=== PATIENT | male | born 1975 | race Caucasian/White ===

== ENCOUNTER 2016-11-29 19:14 | Emergency (ER) | payer MEDICAID ==
[~2016-11-29] VITALS: Ht 170.2 cm; Wt 70.0 kg
[2016-11-29 19:32] VITALS: Ht 170.2 cm; Wt 70.0 kg
[2016-11-29] MEDS ORDERED: HC30CR25 TOP (21:06)
[2016-11-29] MEDS ORDERED: PRED20TA PO (21:06)
[2016-11-29] MEDS ORDERED: TRIA15CR55 TOP (21:06)
--- NOTE | 2016-11-29 21:15 | ERD ---
ER Documentation Chief Complaint Date/Time DATE: 11/29/16 TIME: 21:13 Chief Complaint general rash x 1 month, getting worse. Denies contact w/unk substance HPI 41-year-old male with past medical history of lichen planus presenting to the emergency department with complaints of rash on bilateral upper and lower extremities as well as on the trunk worsening over the past month. He states he has had this rash intermittently for the past 10 years. He has seen a truck rental manager and the rash resolved with steroid injection and topical steroids. He denies fevers, chills, or other symptoms at this time. Symptoms are mild in severity. ROS All systems reviewed and are negative except as per history of present illness. Medications Home Meds Active Scripts Hydrocortisone* Topical (Hydrocortisone* Topical) 2.5%-28.3 Gm Cream..g., 1 APPLIC TOP BID for 7 Days, #1 TUB Prov:ROLDAN ARRIETA PA-C 11/29/16 Prednisone* (Prednisone*) 20 Mg Tab, 40 MG PO DAILY for 5 Days, #10 TAB Prov:ROLDAN ARRIETA PA-C 11/29/16 Discontinued Scripts Triamcinolone Acetonide (Triamcinolone Acetonide) 0.1% - 15 Gm Cream.gm., 1 APPLIC TOP BID, #1 TUB Prov:ROLDAN ARRIETA PA-C 11/29/16 Allergies Allergies: Coded Allergies: No Known Allergy (Unverified , 11/29/16) PMhx/Soc Medical and Surgical Hx: pt denies Medical Hx, pt denies Surgical Hx Hx Alcohol Use: No Hx Substance Use: No Hx Tobacco Use: No Smoking Status: Never smoker Physical Exam Vitals Vital Signs Date Time Temp Pulse Resp B/P Pulse Ox O2 Delivery O2 Flow Rate FiO2 11/29/16 19:32 98.6 70 18 148/86 100 Physical Exam Const: Nontoxic, well-appearing male in no acute distress. Head: Atraumatic Eyes: Normal Conjunctiva ENT: Normal External Ears, Nose and Mouth. Skin: Macular papular, flaking rash with areas of confluency noted on the bilateral upper and lower extremities as well as anterior trunk. No significant surrounding erythema or warmth or other signs of cellulitis. Ext: No cyanosis, or edema Neur: Awake and alert Psych: Normal Mood and Affect Procedures/MDM 41-year-old male presented to the emergency department with complaints of rash. History and physical examination is consistent with lichen planus. The patient does state that his symptoms are very similar to the rash he has had intermittently for the past 10 years which has resolved with steroids. He was stable for outpatient management with a prescription for topical hydrocortisone and prednisone. He was advised to follow-up with his primary care physician and dermatology. Strict ER return precautions were discussed. Low suspicion for cellulitis or other life-threatening illness at time of discharge. Departure Diagnosis: Primary Impression: Rash and other nonspecific skin eruption Condition: Fair Patient Instructions: Self-Care for Skin Rashes Ref[facility] Usted se camargo hecho un examen mdico de control que le indica que no est en monika condicin que requiera tratamiento urgente en el Departamento de Emergencia. Un estudio ms profundo y el tratamiento de borges condicin pueden esperar sin ningn riesgo hasta que usted sea atendida/o en el consultorio de borges mdico o monika cl tasha. Es responsabilidad suya arreglar monika michelle para el seguimiento del giovanny. MANEJO DE CONDICIONES NO URGENTES EN EL FUTURO 1) Si usted tiene un mdico de atencin primaria: Usted debera llamar a borges mdico de atencin primaria antes de venir al departamento de emergencia. Despus de las horas de consultorio, borges doctor o borges asociado/a est disponible por telfono. El mdico o enfermero de rolf en el servicio telefnico puede asesorarle por gerald medio para atender el problema, o giovanny contrario se puede programar monika michelle. 2) Si usted no tiene un mdico de atencin primaria: Llame al mdico o clnica de referencia que aparece abajo charito las horas de consultorio para hacer monika michelle para que le vean. CLINICAS: [facility] [phone] [facility] [phone] [facility] [phone] [facility] [phone] [facility] [phone] [facility]. [phone] [address] Additional Instructions: No mas mejor en 2-3 kohler, regresar. Mas peor en 24 horas, regresear rapidamente. Ir a doctor primario in 5-7 kohler. Usar instrucciones cuando benedicto medicamento. ROLDAN ARRIETA PA-C Nov 29, 2016 21:15
== END 2016-11-29 21:27 | disposition home or self-care (01) ==
LOC: FTE 19:14
DX: R21 Rash and other nonspecific skin eruption (principal)
CPT/HCPCS: 99283

== ENCOUNTER 2016-12-14 19:04 | Emergency (ER) | payer MEDICAID ==
[~2016-12-14] VITALS: Ht 170.2 cm; Wt 68.5 kg
[~2016-12-14 19:04] MED LIST: HC30CR25 TOP; PRED20TA PO
[2016-12-14 19:50] VITALS: Ht 170.2 cm; Wt 68.5 kg
[2016-12-14] MEDS ORDERED: HYDR-3011 PO (23:57)
[2016-12-14] MEDS ORDERED: CLOT30CR24 TOP (23:57)
--- NOTE | 2016-12-15 00:27 | ERD ---
ER Documentation Chief Complaint Chief Complaint general body rash x 2months. denies pain, +itching HPI 41-year-old male presents to emergency department for complaints of rash all over the body and itching for 2 months now, patient has scaling and dryness of the skin, has central clearing, patient was seen in the emergency department 2 weeks ago, was given steroids and anti-itching medication with only mild relief. Patient does not have any fever or chills. Patient denies any family members with the same type of symptoms. Patient denies any other symptoms. ROS All systems reviewed and are negative except as per history of present illness. Medications Home Meds Active Scripts Hydroxyzine Hcl* (Hydroxyzine Hcl*) 25 Mg Tablet, 25 MG PO Q8H Y for ITCHING, # 30 TAB Prov:ILYA DIEHL NP 12/14/16 Clotrimazole* (Clotrimazole* AF) 1% - 30 Gm Cream.gm., 1 APPLIC TOP BID for 7 Days, TUB Prov:ILYA DIEHL NP 12/14/16 Hydrocortisone* Topical (Hydrocortisone* Topical) 2.5%-28.3 Gm Cream..g., 1 APPLIC TOP BID for 7 Days, #1 TUB Prov:ROLDAN ARRIETA PA-C 11/29/16 Prednisone* (Prednisone*) 20 Mg Tab, 40 MG PO DAILY for 5 Days, #10 TAB Prov:ROLDAN ARRIETA PA-C 11/29/16 Allergies Allergies: Coded Allergies: No Known Allergy (Unverified , 12/14/16) PMhx/Soc Medical and Surgical Hx: pt denies Medical Hx History of Surgery: Yes (Appendicitis) Anesthesia Reaction: No Hx Neurological Disorder: No Hx Respiratory Disorders: No Hx Cardiac Disorders: No Hx Psychiatric Problems: No Hx Miscellaneous Medical Probl: No Hx Alcohol Use: No Hx Substance Use: No Hx Tobacco Use: No Smoking Status: Never smoker FmHx Family History: No coronary disease, No diabetes, No other Physical Exam Vitals Vital Signs Date Time Temp Pulse Resp B/P Pulse Ox O2 Delivery O2 Flow Rate FiO2 12/14/16 19:50 99.3 75 18 132/81 98 Physical Exam GENERAL: The patient is well developed and appropriate for usual state of health, in no apparent distress. CHEST: Clear to auscultation bilaterally. There are no rales, wheezes or rhonchi. HEART: Regular rate and rhythm. No murmurs, clicks, rubs or gallops. No S3 or S4. ABDOMEN: Soft, nontender and nondistended. Good bowel sounds. No rebound or guarding. No gross peritonitis. No gross organomegaly or masses. No Castro sign or McBurney point tenderness. BACK: No midline or flank tenderness. EXTREMITIES: Equal pulses bilaterally. There is no peripheral clubbing, cyanosis or edema. No focal swelling or erythema. Full range of motion. Grossly neurovascularly intact. NEURO: Alert and oriented. Cranial nerves 2-12 intact. Motor strength in all 4 extremities with 5/5 strength. Sensation grossly intact. Normal speech and gait. SKIN: Maculopapular rash noted all over her upper extremity. There is no apparent rash or petechia. The skin is warm and dry. HEMATOLOGIC AND LYMPHATIC: There is no evidence of excessive bruising or lymphedema. No gross cervical, axillary, or inguinal lymphadenopathy. Procedures/MDM Medical decision making: Patient symptoms of a rash at this time, most likely can be fungal infection, this annular lesion with central clearing, with hydrocortisone at home with only mild relief. Patient was advised to see search engine optimization specialist for further evaluation and management. No symptoms of any coagulopathies, allergic reaction, urticaria, contagious rash. Prescription was given for clotrimazole, hydroxyzine, is advised to follow-up with primary care doctor in 2-3 days for reevaluation of symptoms. Patient was advised to return to emergency department for any worsening symptoms. Disposition: Home. Stable. Departure Diagnosis: Primary Impression: Rash Condition: Stable Patient Instructions: Self-Care for Skin Rashes Referrals: [facility] Usted se camargo hecho un examen mdico de control que le indica que no est en monika condicin que requiera tratamiento urgente en el Departamento de Emergencia. Un estudio ms profundo y el tratamiento de borges condicin pueden esperar sin ningn riesgo hasta que usted sea atendida/o en el consultorio de borges mdico o monika cl tasha. Es responsabilidad suya arreglar monika michelle para el seguimiento del giovanny. MANEJO DE CONDICIONES NO URGENTES EN EL FUTURO 1) Si usted tiene un mdico de atencin primaria: Usted debera llamar a borges mdico de atencin primaria antes de venir al departamento de emergencia. Despus de las horas de consultorio, borges doctor o borges asociado/a est disponible por telfono. El mdico o enfermero de rolf en el servicio telefnico puede asesorarle por gerald medio para atender el problema, o giovanny contrario se puede programar monika michelle. 2) Si usted no tiene un mdico de atencin primaria: Llame al mdico o clnica de referencia que aparece abajo charito las horas de consultorio para hacer monika michelle para que le vean. CLINICAS: [facility] [phone] [facility] [facility] [phone] [facility] [facility] [phone] [facility]. [facility] [phone] [facility] [place] [phone] [facility]. [phone] [address] [facility]. [facility] () Usted se camargo hecho un examen mdico de control que le indica que no est en monika condicin que requiera tratamiento urgente en el Departamento de Emergencia. Un estudio ms profundo y el tratamiento de borges condicin pueden esperar sin ningn riesgo hasta que usted sea atendida/o en el consultorio de borges mdico o monika cl tasha. Es responsabilidad suya arreglar monika michelle para el seguimiento del giovanny. MANEJO DE CONDICIONES NO URGENTES EN EL FUTURO 1) Si usted tiene un mdico de atencin primaria: Usted debera llamar a borges mdico de atencin primaria antes de venir al departamento de emergencia. Despus de las horas de consultorio, borges doctor o borges asociado/a est disponible por telfono. El mdico o enfermero de rolf en el servicio telefnico puede asesorarle por gerald medio para atender el problema, o giovanny contrario se puede programar monika michelle. 2) Si usted no tiene un mdico de atencin primaria: Llame al mdico o condado institucions de referencia que aparece abajo charito las horas de consultorio para hacer monika michelle para que le vean. SI USTED NO PUEDE PAGAR PARA KRISTI UN MEDICO puede ir a: [facility] [address] [place] [address] [facility] [address] [place] [address] [facility] [address] [place] [address] PARA [facility] [address] [place], [place] [id number] Additional Instructions: see search engine optimization specialist FAZAL,ILYA Carvajal NP Dec 15, 2016 00:10
== END 2016-12-15 00:10 | disposition home or self-care (01) ==
LOC: FTE 19:04
DX: R21 Rash and other nonspecific skin eruption (principal)
CPT/HCPCS: 99283